=== PATIENT | female | born 1995 | race Caucasian/White ===

== ENCOUNTER 2020-01-08 08:40 | Inpatient (IN) | payer OTHER ==
[2020-01-08] VITALS (11 sets, daily range): BP systolic 115–136; BP diastolic 66–84
[~2020-01-08] VITALS: Ht 162.6 cm; Wt 77.7 kg
[2020-01-08] MEDS ORDERED: PRENTAB9 PO (08:54)
[2020-01-08] MEDS ORDERED: miSOPROStol 25 MCG 1/4 TAB (S0191) PO ONE (09:30)
[2020-01-08] MEDS ORDERED: miSOPROStol 25 MCG 1/4 TAB (S0191) PV ONE (09:30)
[2020-01-08] MEDS ORDERED: miSOPROStol 50 MCG 1/2 TAB (S0191) PV ONE (09:30)
[2020-01-08] MEDS ORDERED: miSOPROStol 50 MCG 1/2 TAB (S0191) PO ONE (09:30)
[2020-01-08] MEDS ORDERED: LACTATED RINGER'S 1000 ML IV ONE (10:00)
[2020-01-08 10:15] LABS: HEMATOCRIT 31.5 % (36.0-47.0); HEMOGLOBIN 10.8 g/dl (12.0-15.5); MEAN CORPUSCULAR HEMOGLOBIN 30.7 pg (27.0-33.0); MEAN CORPUSCULAR HGB CONC 34.3 g/dl (32.0-36.5); MEAN CORPUSCULAR VOLUME 89.5 fl (80.0-96.0); PLATELET COUNT, AUTOMATED 185 10^3/uL (150-450); RED BLOOD COUNT 3.52 10^6/uL (4.00-5.40); WHITE BLOOD COUNT 7.6 10^3/uL (4.0-10.0)
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
[2020-01-08] MEDS: LR 1,000 ML IV SCH ×2 (11:32→16:51)
--- NOTE | 2020-01-08 15:19 | IPNPDOC ---
Obstetrical Progress Note Date of Service Jan 08, 2020 Subjective Pt is comfortable, states that she is ready for exam and to begin IOL with her at her bedside. Objective Vital Signs Date Time Temp Pulse Resp B/P (MAP) Pulse Ox O2 Delivery O2 Flow Rate FiO2 01/08/20 13:32 96 18 123/66 (85) 01/08/20 09:06 98.5 Assessment Heart Rate (FHR): 120 Variability: Moderate Accelerations: Positive Decelerations: None Heart Rate Tracing: Category I Tocometer Contractions: Yes Frequency: every 1-3 min. Strength: palpated as moderate Sterile Vaginal Examination Dilation: 1cm (-2cm) Effacement (%): 50% Station: -2 Cervical Consistency: Firm Cervical Position: Posterior Postion/Presentation: Cephalic presentation (by Laura) Assessment and Plan Age: 24 : 1 Term: 0 Pre-term: 0 Abortions: 0 Livin EGA at Admission: 41 Status: Reassuring Group B Streptococcus: Negative Anticipate: Vaginal Delivery Additional Comments A: 24yo suzanne [id number] @41+0, A-,GBS-, complicated by CHTN, PTSD, IOL for NRFHT on NST P: lr @125 mL/hr, continuous efm x2, monitor for change in or maternal status, cervical catheter filled to 80/60, evaluate for need for additional augmentation agent and change as indicated, anticipate vaginal delivery MELANIE ADAME CNM Jan 08, 2020 15:19
[2020-01-08] MEDS ORDERED: PROMETHAZINE INJ 25 MG/ML VIAL (J2550) IV ONE (19:00)
[2020-01-08] MEDS ORDERED: BUTORPHANOL 2 MG/ML INJ (J0595) IV ONE (19:00)
[2020-01-09] VITALS (31 sets, daily range): BP systolic 114–170; BP diastolic 62–100
[2020-01-09] MEDS ORDERED: BUTORPHANOL 2 MG/ML INJ (J0595) IV ONE ×2 (00:30→10:30)
[2020-01-09] MEDS ORDERED: PROMETHAZINE INJ 25 MG/ML VIAL (J2550) IV ONE ×2 (00:30→10:30)
[2020-01-09] MEDS ORDERED: OXYTOCIN 30 UNITS IN 0.9% NaCl 500ML IV BAG (J2590) As Ordered ONE (08:49)
[2020-01-09] MEDS ORDERED: OXYTOCIN DRIP 30 UNITS in IV 1 EA IV SCH ×2 (09:00→17:15)
[2020-01-09] MEDS ORDERED: FENTANYL 2MCG/ML ROPIVACAINE 0.2% IN 0.9% NACL 100ML IVBAG As Ordered ONE (11:39)
[2020-01-09] MEDS ORDERED: REFRIGERATOR IV KEYS XX PRN (12:30)
[2020-01-09] MEDS ORDERED: ONDANSETRON 4MG/2ML VIAL IV PRN (12:30)
[2020-01-09] MEDS ORDERED: FENTANYL/ROPIVACAINE/NACL BAG 100 ML EPIDURAL SCH (12:30)
[2020-01-09] MEDS ORDERED: EPIDURAL/PCA KEYS XX PRN (12:30)
[2020-01-09] MEDS ORDERED: EPIDURAL COMMENT XX SCH (12:30)
[2020-01-09] MEDS ORDERED: NALOXONE INJ 0.4MG/1ML VIAL (J2310 PER 1MG) IV PRN (12:30)
[2020-01-09] MEDS ORDERED: ePHEDrine SULFATE 25 MG/5 ML(5MG/ML) SYRINGE IV PRN (12:30)
[2020-01-09] MEDS ORDERED: LACTATED RINGER'S 1000 ML IV PRN (12:30)
[2020-01-09] MEDS ORDERED: diphenhydrAMINE 50MG/ML VIAL (J1200) IV PRN (12:30)
[2020-01-09 16:59] LABS: CORD GAS ABE V -3.2; CORD GAS HCO3 V 22.7 MEQ/L; CORD GAS O2 SAT V 77.2 %; CORD GAS PCO2 V 43.6 mmHg; CORD GAS PH V 7.335 UNITS; CORD GAS PO2 V 32.4 mmHg; CORD GAS SBC V 21.3 MEQ/L; CORD GAS TCO2 V 24.1 MEQ/L
[2020-01-09 17:00] LABS: CORD GAS ABE A -5.7; CORD GAS HCO3 A 22.4 MEQ/L; CORD GAS PH A 7.244 UNITS; CORD GAS PO2 A 48.9 mmHg; CORD GAS SBC A 19.7 MEQ/L
[2020-01-09] MEDS ORDERED: IBUPROFEN 800 MG TAB PO PRN (17:00)
[2020-01-09] MEDS ORDERED: RHOGAM 300 MCG (1500 IU) INJ (J2790) IM SCH (17:00)
[2020-01-09] MEDS ORDERED: MOM 30ML SUSPENSION UDC PO PRN (17:00)
[2020-01-09] MEDS ORDERED: IBUPROFEN 600MG TAB PO PRN (17:00)
[2020-01-09] MEDS ORDERED: MEASLES,MUMPS,RUBELLA VACCINE INJ (MMR-II) (90707) SC SCH (17:00)
[2020-01-09] MEDS ORDERED: ACETAMINOPHEN 500 MG TAB PO PRN (17:00)
[2020-01-09] MEDS ORDERED: ACETAMINOPHEN TAB 650MG DOSE (2X325MG) PO PRN (17:00)
[2020-01-09] MEDS ORDERED: DOCUSATE SODIUM 100 MG CAP PO PRN (17:00)
[2020-01-09] MEDS ORDERED: METHYLERGONOVINE MALEATE 0.2 MG TAB PO PRN (17:00)
[2020-01-09] MEDS ORDERED: ANUSOL HC CREAM 30GM TOP PRN (17:00)
[2020-01-09] MEDS ORDERED: DIBUCAINE 1% OINTMENT 30GM TOP PRN (17:00)
--- NOTE | 2020-01-09 17:00 | DNPDOC ---
[facility] Delivery Note Delivery Note DATE OF DELIVERY: 01/09/2020 PREDELIVERY DIAGNOSIS: 41 +1/7 weeks' gestation and labor. POST DELIVERY DIAGNOSIS: Delivered. PROCEDURE: Spontaneous vaginal delivery. PROVIDER: Trinidad Vera CNM ANESTHESIA: Epidural. ESTIMATED BLOOD LOSS: 450 mL. FINDINGS: 7 pound 8 ounce, 3390gm male infant, Score 8/9, nuchal cord times 2, loose. DELIVERY SUMMARY: Patient is a 24-year-old 1 now para 1-0-0-1 who was admitted to labor and delivery for postdates induction of labor. I was called to room while attending physician was in OR. On arrival to room, presenting part was . Viable male delivered TAMEKA, bulb suctioned nares and oropharynx prior to delivery due to noted meconium stained fluid. Infant delivered 1625 without difficulty. Deep suctioned after delivery, stimulated for initial transition on maternal abdomen. Cord doubly clamped and cut by FOB under my direction. Infant to warmer for further suctioning and stimulation. Apgars 8/9. Cord gases obtained and pending. Large amount terminal meconium noted at delivery. Placenta delivered bhatti, intact with 3v cord and trailing membranes @ 1634. Fundus firmed with massage and IV pitocin bolus. Placenta noted to have small succenturiate lobe. EBL 450ml. Cervix, vagina and perineum inspected. First degree vaginal laceration at outlet noted, repaired with 3-0 vicryl rapide. Sponge, sharp and instrument count correct. Parents are naming their son Gabe. Trinidad Vera CNM Jan 09, 2020 17:00
[2020-01-09] MEDS: METHYLERGONOVINE MALEATE 0.2 MG TAB PO SCH (23:48)
[2020-01-10] MEDS: METHYLERGONOVINE MALEATE 0.2 MG TAB PO SCH ×2 (05:07→11:19)
[2020-01-10 06:00] VITALS: BP 118/71
[2020-01-10] MEDS: PRENATAL VITAMINS CHEWABLE TABLET PO SCH (07:46)
--- NOTE | 2020-01-10 08:47 | IPNPDOC ---
Progress Note Date of Service: Jan 10, 2020 Day#: 1 Progress Note SUBJECT: Doing well without complaints. Ambulating, voiding and pain is well-c ontrolled. Reports minimal lochia. OBJECTIVE: VITAL SIGNS: Within normal limits, afebrile. Alert and oriented times three. Abdomen: Fundus firm at U-2. Soft, NTTP. Ext: neg calf tenderness. ASSESSMENT: day #1 status post normal spontaneous vaginal delivery. Recovering in stable condition. PLAN: 1. Continue routine care 2. Discharge plans for tomorrow VS, I&O, 24H, Fishbone Vital Signs/I&O Vital Signs Date Time Temp Pulse Resp B/P (MAP) Pulse Ox O2 Delivery O2 Flow Rate FiO2 01/10/20 06:00 97.2 91 17 118/71 (87) 97 Room Air I&O- Last 24 Hours up to 6 AM 01/10/20 06:00 Intake Total 2100 ml Output Total 1400 ml Balance 700 ml Laboratory Data 24H LABS Laboratory Tests 2 01/09/20 16:44: Cord Arterial Blood pH 7.244, Cord Arterial Blood PCO2 53.0, Cord Arterial Blood PO2 48.9, Cord Arterial Blood HCO3 22.4, Cord Arterial Blood Total CO2 24.0, Cord Arterial Blood Base Excess -5.7, Cord Arterial Base Excess (Standard 19.7, Cord Arterial Bld Oxygen Saturation 89.0, Cord Venous Blood pH 7.335, Cord Venous Blood PCO2 43.6, Cord Venous Blood PO2 32.4, Cord Venous Blood HCO3 22.7, Cord Venous Blood Total CO2 24.1, Cord Venous Base Excess (Actual) -3.2, Cord Venous Base Excess (Standard) 21.3, Cord Venous Blood Oxygen Saturation 77.2 STEPHY GARCIAS MD. Jan 10, 2020 08:47
[2020-01-10] MEDS ORDERED: METHYLERGONOVINE MALEATE 0.2 MG TAB PO PRN (17:30)
[2020-01-10 18:14] VITALS: BP 120/63
[2020-01-10] MEDS ORDERED: DIBU10OI TOP (19:52)
[2020-01-10] MEDS ORDERED: PROC1CRE5 TOP (19:52)
[2020-01-10] MEDS ORDERED: DOCU100C16 PO (19:52)
[2020-01-10] MEDS ORDERED: IBUP80TA PO (19:52)
[2020-01-11 06:00] VITALS: BP 117/66
--- NOTE | 2020-01-11 08:18 | IPNPDOC ---
Progress Note Date of Service: Jan 11, 2020 Day#: 2 Progress Note SUBJECT: Patient is a 24-year-old 1 now Para 1 status post uncomplicated spontaneous vaginal delivery with post 1st degree laceration and repair, doing well day # 2. She has been ambulating, voiding spontaneously without issue and tolerating regular diet. Breast feeding without issue. Reports lochia is like a normal period. Patient is ambulating well. Reports some cramping. Has no pain. Voiding and stooling without difficulty. OBJECTIVE: VITAL SIGNS: Within normal limits, afebrile. GENERAL: No acute distress HEENT: Mucous membranes are moist BREAST: Nontender, no erythema CARDIOVASCULAR: RRR RESPIRATORY: Bilaterally clear ABDOMINAL EXAMINATION: Soft, appropriate tenderness, nondistended, fundus -2 PERINEUM: Intact, minimal lochia EXTREMITIES: no edema, nontender ASSESSMENT: Patient is a 24-year-old 1 now Para 1 status post uncomplicated spontaneous vaginal delivery with post 1st degree laceration and repair, doing well day # 2. Vitals within normal limits, afebrile, hemodynamically stable with no evidence of infection. PLAN: 1. Discharge to home today. 2. Tylenol and Motrin for pain. 3. Encourage breast feeding and ambulation. 4. Routine PP visit in 6 weeks in clinic. 5. Discussed return precautions at length. VS, I&O, 24H, Fishbone Vital Signs/I&O Vital Signs Date Time Temp Pulse Resp B/P (MAP) Pulse Ox O2 Delivery O2 Flow Rate FiO2 01/10/20 18:14 97.7 85 18 120/63 (82) 98 Room Air I&O- Last 24 Hours up to 6 AM 01/10/20 06:00 Intake Total 2100 ml Output Total 1400 ml Balance 700 ml Elizabeth Sarah MD Jan 10, 2020 19:48
--- NOTE | 2020-01-11 08:18 | OBDS ---
[facility] Obstetrical Discharge Sum. Obstetrical Discharge Summary Date: Jan 11, 2020 : 1 Term: 1 Livin VDRL: Non-Reactive Rh: Negative Rubella: Immune Labor Active labor Delivery Infant Sex: Male Weight: grams (3390) A/P, Post Course List any complications Admission diagnosis: 1. Term . 2. Active Labor Discharge diagnosis: 1. Term 2. Active Labor Condition at Discharge: Good Discharge Instructions: Home Activity: Ad kayce, pelvic rest Diet: Regular Medications: As prescribed at 36wks Follow-up: 6wks Other: None Course: Uncomplicated. Hospital Course: Patient was admitted for labor which progressed without difficulty with an uncomplicated . There was 1st degree laceration which was repaired. course was uncomplicated with normal lochia, normal urination, ambulation, tolerating a diet, and controlled pain. Elizabeth Sarah MD Jan 10, 2020 19:50
[2020-01-11] MEDS: PRENATAL VITAMINS CHEWABLE TABLET PO SCH (09:10)
--- NOTE | 2020-01-22 10:35 | IPN ---
DATE: 01/08/2020 at 1900 hours This lady is a 24-year-old 1 who was seen at the clinic and had a spontaneous deceleration for 2 minutes on an NST, and she was admitted for induction of labor. Past medical history as documented, says that she has two uncles and grandparents with deep venous thrombosis (DVT). All her uncles and aunts have Leiden V factor; however, she has not been tested. Presently, she has a Escalante bulb in place at 41 weeks of gestation. Has a category 1 strip. We have ordered a Leiden factor V, which will not be back for 7-10 days, and we have ordered an antiprotein C, which, again, will not be back for 7-10 days. We discussed with the patient analgesic management. Presently she is requesting intravenous (IV) medications; however, there is no contraindication to an epidural if needed. We also discussed laboring down, allowing her to get to the point where she has a minimum amount of pushing. We talked about the risks of atonic uterus and hemorrhage and the use of Pitocin, possibly use of Cytotec, anything to contract down the uterus, and meticulous repair of any lacerations to the vagina or, if required, a midline episiotomy. Patient appeared to express the understanding of what was going on but does need further testing and genetic tree counseling post delivery. The patient has presently been given sequentials. Has an intravenous (IV), which is running at 125 mL per hour, and she will receive IV medications in the form of Stadol and Phenergan, and we will re- evaluate her once the Escalante bulb has fallen out. We had a 25-minute discussion. UBALDO
== END 2020-01-11 15:15 | disposition home or self-care (01) | DRG 806 ==
LOC: M LDO 08:40 → M LDI 09:52 → M PED 01-09 20:34 → M OBS 01-10 14:45
PROVIDERS: ADMIT Registered Nurse; ATTEND Advanced Practice Midwife
PROC: 3E033VJ Introduction of Other Hormone into Peripheral Vein, Percutaneous Approach (ICD-10-PCS; 2020-01-08)
PROC: 10E0XZZ Delivery of Products of Conception, External Approach (ICD-10-PCS; principal; 2020-01-09)
PROC: 0HQ9XZZ Repair Perineum Skin, External Approach (ICD-10-PCS; 2020-01-09)
DX: O76 Abnormality in fetal heart rate and rhythm complicating labor and delivery (principal); Z37.0 Single live birth; O10.02 Pre-existing essential hypertension complicating childbirth; O48.0 Post-term pregnancy; Z3A.41 41 weeks gestation of pregnancy; O99.344 Other mental disorders complicating childbirth; F43.10 Post-traumatic stress disorder, unspecified; F41.9 Anxiety disorder, unspecified; O70.0 First degree perineal laceration during delivery; O77.0 Labor and delivery complicated by meconium in amniotic fluid; O69.81X0 Labor and delivery complicated by cord around neck, without compression, not applicable or unspecified

== ENCOUNTER 2020-01-13 20:35 | Emergency (ER) | payer OTHER ==
[~2020-01-13] VITALS: Ht 162.6 cm; Wt 73.1 kg
[~2020-01-13 20:35] MED LIST: DIBU10OI TOP; DOCU100C16 PO; IBUP80TA PO; PRENTAB9 PO; PROC1CRE5 TOP
[2020-01-13] MEDS ORDERED: ACETAMINOPHEN 325 MG TAB PO ONE (22:15)
[2020-01-13] MEDS ORDERED: NS 1,000 ML IV ONE (22:15)
[2020-01-13] MEDS ORDERED: METAL LOCK LOOP XX ONE (22:40)
[2020-01-13 23:00] LABS: BASO % 0.2 % (0.0-1.0); EOS % 0.3 % (0.0-3.0); HEMATOCRIT 29.5 % (36.0-47.0); HEMOGLOBIN 10.1 g/dl (12.0-15.5); LYMPH # 1.1 10^3/uL (1.5-5.0); LYMPH % 8.9 % (24.0-44.0); MEAN CORPUSCULAR HEMOGLOBIN 30.6 pg (27.0-33.0); MEAN CORPUSCULAR HGB CONC 34.2 g/dl (32.0-36.5); MEAN CORPUSCULAR VOLUME 89.4 fl (80.0-96.0); MONO # 0.5 10^3/uL (0.0-0.8); MONO % 4.1 % (0.0-5.0); NEUTROPHILS # 10.8 10^3/uL (1.5-8.5); PLATELET COUNT, AUTOMATED 238 10^3/uL (150-450); WHITE BLOOD COUNT 12.6 10^3/uL (4.0-10.0)
[2020-01-13 23:10] LABS: INR 1.03; PROTHROMBIN TIME 13.7 SECONDS (12.5-14.3)
[2020-01-13 23:11] LABS: PARTIAL THROMBOPLASTIN TIME 27.9 SECONDS (24.2-38.5)
[2020-01-13 23:24] LABS: BILIRUBIN,DIRECT 0.2 MG/DL (0.0-0.2); BILIRUBIN,TOTAL 0.9 MG/DL (0.2-1.0); TOTAL PROTEIN 6.6 GM/DL (6.4-8.2)
--- NOTE | 2020-01-14 00:58 | REPVR ---
PROCEDURE INFORMATION: Exam: US Nonobstetric Pelvis; Complete Exam date and time: 01/14/2020 12:33 AM Age: 24 years old Clinical indication: Other: Fever, cramping; Additional info: Fever/cramping 4 days pp TECHNIQUE: Imaging protocol: Transabdominal pelvic nonobstetric ultrasound. Complete exam. Real time ultrasound with image documentation. 3D rendering (Not supervised by radiologist): MIP and/or 3D reconstructed images were created and reviewed. COMPARISON: No relevant prior studies available. FINDINGS: Uterus/cervix: Uterus measures 20.5 x 7.5 x 13.2 cm. No hypervascularity within the uterus. No masses. Endometrial stripe measures 13 mm in thickness. Small hyperechoic foci within the endometrial canal which may represent gas consistent with status. Right adnexa: Right ovary measures 4.3 x 2.2 x 4.1 cm. Normal vascular flow. No masses. Left adnexa: Left ovary measures 4.0 x 2.1 x 3.1 cm. Normal vascular flow. No masses. Intraperitoneal space: None. Bladder: Bladder is unremarkable. IMPRESSION: No evidence of retained products of conception. Electronically signed by: Carlos Armstrong On 01/14/2020 00:58:42 AM
[2020-01-14] MEDS ORDERED: KEFL500C17 PO (01:14)
[2020-01-14 01:26] VITALS: BP 131/72
[2020-01-14] MEDS ORDERED: CEPHALEXIN 500 MG CAP PO ONE (01:30)
== END 2020-01-14 01:29 | disposition home or self-care (01) ==
LOC: M ED 20:35
DX: N39.0 Urinary tract infection, site not specified (principal); R51 Headache; F33.9 Major depressive disorder, recurrent, unspecified; F41.9 Anxiety disorder, unspecified; G43.909 Migraine, unspecified, not intractable, without status migrainosus; Z79.899 Other long term (current) drug therapy

== ENCOUNTER 2023-09-04 17:36 | Emergency (ER) | payer OTHER ==
[~2023-09-04] VITALS: Ht 162.6 cm; Wt 59.9 kg
[~2023-09-04 17:36] MED LIST changes: -DIBU10OI TOP; +DIBU28OI2 TOP; +KEFL500C17 PO
[2023-09-04] MEDS ORDERED: AMIT50TA (17:46)
[2023-09-04] MEDS ORDERED: MULT18TA PO (17:47)
[2023-09-04] MEDS ORDERED: CVS10CAP7 PO (17:47)
[2023-09-04] MEDS ORDERED: MAGN200T PO (17:47)
[2023-09-04 19:35] LABS: BASO % 0.5 % (0.0-1.0); EOS % 0.2 % (0.0-3.0); HEMATOCRIT 31.2 % (36.0-47.0); HEMOGLOBIN 9.5 g/dl (12.0-15.5); LYMPH # 1.3 10^3/uL (1.5-5.0); LYMPH % 23.8 % (24.0-44.0); MEAN CORPUSCULAR HEMOGLOBIN 22.2 pg (27.0-33.0); MEAN CORPUSCULAR HGB CONC 30.4 g/dl (32.0-36.5); MEAN CORPUSCULAR VOLUME 73.1 fl (80.0-96.0); MONO # 0.6 10^3/uL (0.0-0.8); MONO % 10.8 % (2.0-8.0); NEUTROPHILS # 3.5 10^3/uL (1.5-8.5); NEUTROPHILS % 64.5 % (36.0-66.0); PLATELET COUNT, AUTOMATED 340 10^3/uL (150-450); RED BLOOD COUNT 4.27 10^6/uL (4.00-5.40); WHITE BLOOD COUNT 5.5 10^3/uL (4.0-10.0)
[2023-09-04 20:07] LABS: BLOOD UREA NITROGEN 13 MG/DL (9-23); CALCIUM LEVEL 9.6 MG/DL (8.5-10.1); CARBON DIOXIDE LEVEL 24 MMOL/L (20-31); CHLORIDE LEVEL 103 MMOL/L (98-107); CREATININE FOR GFR 0.79 MG/DL (0.55-1.30); GLOMERULAR FILTRATION RATE > 60.0 (>60); GLUCOSE, FASTING 80 MG/DL (60-100); MAGNESIUM LEVEL 2.1 MG/DL (1.8-2.4); POTASSIUM SERUM 4.1 MMOL/L (3.5-5.1); SODIUM LEVEL 136 MMOL/L (136-145)
[2023-09-04 20:22] LABS: HCG, SERUM QUALITATIVE NEGATIVE (NEGATIVE)
[2023-09-04] MEDS: methylPREDNISolone 125MG 2ML VIAL IV ONE (20:29)
[2023-09-04] MEDS: methocarbamoL 500 MG TAB PO ONE (20:29)
[2023-09-04] MEDS: KETOROLAC 30 MG/ML 1ML VIAL IV ONE (20:30)
[2023-09-04] MEDS: NS 1,000 ML IV ONE (20:33)
[2023-09-05] MEDS ORDERED: IBUP-1022 PO (00:41)
[2023-09-05] MEDS ORDERED: METH-1164 PO (00:41)
[2023-09-05] MEDS ORDERED: PRED20TA PO (00:41)
[2023-09-05 00:56] VITALS: BP 124/68; TEMP 97.5; O2SAT 98
== END 2023-09-05 00:58 | disposition home or self-care (01) ==
LOC: M ED 17:36
DX: M51.86 Other intervertebral disc disorders, lumbar region (principal); R00.0 Tachycardia, unspecified; I45.10 Unspecified right bundle-branch block; I10 Essential (primary) hypertension; G43.909 Migraine, unspecified, not intractable, without status migrainosus; G90.A Postural orthostatic tachycardia syndrome [POTS]; Q07.00 Arnold-Chiari syndrome without spina bifida or hydrocephalus; F17.290 Nicotine dependence, other tobacco product, uncomplicated; Z79.1 Long term (current) use of non-steroidal anti-inflammatories (NSAID); Z79.810 Long term (current) use of selective estrogen receptor modulators (SERMs); Z79.52 Long term (current) use of systemic steroids; Z79.899 Other long term (current) drug therapy
CPT/HCPCS: 72148; 80048; 83735; 84703; 85025; 93005; 96361; 96374; 96375; 99284; J1885; J2919

== ENCOUNTER 2023-10-03 16:08 | Outpatient (CLI) | payer OTHER ==
[~2023-10-03] VITALS: Ht 162.6 cm; Wt 59.1 kg
[~2023-10-03 16:08] MED LIST changes: +ALBUTEROL SULFATE 2.5MG/0.5ML INH NEB SOLN INH PRN; +AMIT50TA; +CVS10CAP7 PO; +EPINEPHrine INJ 1 MG/ML 1ML AMP IM PRN; +IBUP-1022 PO; +MAGN200T PO; +METH-1164 PO; +MULT18TA PO; +PRED20TA PO; +diphenhydrAMINE 50MG/ML VIAL IV PRN; +methylPREDNISolone 125MG 2ML VIAL IV PRN
[2023-10-03 16:19] VITALS: BP 137/78; O2SAT 100
[2023-10-03] MEDS ORDERED: NS 1,000 ML IV SCH (16:30)
[2023-10-03] MEDS ORDERED: ACETAMINOPHEN TAB 650MG DOSE (2X325MG) PO ONE (16:30)
[2023-10-03] MEDS: IRON SUCROSE 200 MG in NS 100 ML OVER 1 HR IV ONE (16:50)
[2023-10-03 17:39] VITALS: BP 127/72; O2SAT 100
== END 2023-10-03 17:57 ==
LOC: M INFU 16:08
PROVIDERS: ATTEND Nurse Practitioner Primary Care
DX: D50.8 Other iron deficiency anemias (principal)
CPT/HCPCS: 96365; J1756

== ENCOUNTER 2023-10-10 16:10 | Outpatient (CLI) | payer OTHER ==
[~2023-10-10 16:10] MED LIST changes: +NS 1,000 ML IV SCH
[2023-10-10] MEDS ORDERED: ACETAMINOPHEN TAB 650MG DOSE (2X325MG) PO ONE (16:30)
[2023-10-10] MEDS: IRON SUCROSE 200 MG in NS 100 ML IV ONE (16:34)
[2023-10-10 17:37] VITALS: BP 108/59; O2SAT 100
== END 2023-10-10 17:40 | disposition home or self-care (01) ==
LOC: M INFU 16:10
PROVIDERS: ATTEND Nurse Practitioner Primary Care
DX: D50.8 Other iron deficiency anemias (principal)
CPT/HCPCS: 96365; J1756

== ENCOUNTER 2023-10-17 16:20 | Outpatient (CLI) | payer OTHER ==
[~2023-10-17] VITALS: Ht 162.6 cm; Wt 59.1 kg
[2023-10-17 16:20] VITALS: BP 128/69; O2SAT 100
[2023-10-17] MEDS: ACETAMINOPHEN TAB 650MG DOSE (2X325MG) PO ONE (16:57)
[2023-10-17] MEDS: IRON SUCROSE 200 MG in NS 100 ML IV ONE (16:58)
[2023-10-17 18:00] VITALS: BP 118/74; O2SAT 100
== END 2023-10-17 18:00 | disposition home or self-care (01) ==
LOC: M INFU 16:20
PROVIDERS: ATTEND Nurse Practitioner Primary Care
DX: D50.8 Other iron deficiency anemias (principal)
CPT/HCPCS: 96365; J1756

== ENCOUNTER 2023-10-24 15:55 | Outpatient (CLI) | payer OTHER ==
[~2023-10-24] VITALS: Ht 162.6 cm; Wt 59.0 kg
[2023-10-24 15:55] VITALS: BP 124/70; O2SAT 96
[2023-10-24] MEDS: IRON SUCROSE 200 MG in NS 100 ML OVER 1 HR IV ONE (16:07)
[2023-10-24] MEDS ORDERED: ACETAMINOPHEN TAB 650MG DOSE (2X325MG) PO ONE (16:15)
[2023-10-24 17:11] VITALS: BP 124/64; O2SAT 98
== END 2023-10-24 17:20 ==
LOC: M INFU 15:55
PROVIDERS: ATTEND Nurse Practitioner Primary Care
DX: D50.8 Other iron deficiency anemias (principal)
CPT/HCPCS: 96365; J1756

== ENCOUNTER 2023-10-31 16:20 | Outpatient (CLI) | payer OTHER ==
[~2023-10-31] VITALS: Ht 162.6 cm; Wt 59.8 kg
[2023-10-31 16:20] VITALS: BP 117/71; O2SAT 99
[~2023-10-31 16:20] MED LIST changes: +ACETAMINOPHEN TAB 650MG DOSE (2X325MG) PO ONE; -NS 1,000 ML IV SCH
[2023-10-31] MEDS ORDERED: NS 1,000 ML IV SCH (16:30)
[2023-10-31] MEDS: IRON SUCROSE 200 MG in NS 100 ML OVER 1 HR IV ONE (16:36)
[2023-10-31 17:40] VITALS: BP 116/71; O2SAT 99
== END 2023-10-31 17:40 ==
LOC: M INFU 16:20
PROVIDERS: ATTEND Nurse Practitioner Primary Care
DX: D50.8 Other iron deficiency anemias (principal)
CPT/HCPCS: 96365; J1756

== ENCOUNTER → 2024-03-06 | Outpatient (CLI) | payer OTHER ==
[~2024-03-06] MED LIST changes: -ACETAMINOPHEN TAB 650MG DOSE (2X325MG) PO ONE; -ALBUTEROL SULFATE 2.5MG/0.5ML INH NEB SOLN INH PRN; -EPINEPHrine INJ 1 MG/ML 1ML AMP IM PRN; -diphenhydrAMINE 50MG/ML VIAL IV PRN; -methylPREDNISolone 125MG 2ML VIAL IV PRN
== END ==
LOC: M PLAIMG 08:01
PROVIDERS: ATTEND Internal Medicine
DX: M48.02 Spinal stenosis, cervical region (principal); M50.022 Cervical disc disorder at C5-C6 level with myelopathy